=== PATIENT | male | born 1995 | race Two or more races ===

== ENCOUNTER 2017-08-11 10:23 | Emergency (ER) | payer MEDICAID ==
[~2017-08-11] VITALS: Ht 170.2 cm; Wt 79.0 kg
[~2017-08-11 10:23] MED LIST: BAC10T PO; IBUP-1984 PO; ONDA4TAB59 PO; ONDA4TAB6 PO; RANI-366 PO
[2017-08-11 11:05] LABS: BASOPHILS % (AUTO) 0.3 % (0-1); EOSINOPHILS # (AUTO) 0.1 X10'3 (0-0.9); HEMATOCRIT 40.8 % (42.0-52.0); HEMOGLOBIN 14.3 g/dl (14.0-17.9); LYMPHOCYTES # (AUTO) 1.7 X10'3 (1.1-4.8); LYMPHOCYTES % (AUTO) 26.1 % (21-51); MEAN CORPUSCULAR HEMOGLOBIN 31.5 PG (27.0-31.0); MEAN CORPUSCULAR VOLUME 90.1 FL (78-98); MEAN PLATELET VOLUME 8.3 FL (7.4-10.4); MONOCYTES # (AUTO) 0.6 X10'3 (0-0.9); MONOCYTES % (AUTO) 9.8 % (2-12); NEUTROPHILS % (AUTO) 61.8 % (42-75); PLATELET COUNT 222 X10'3 (140-440); RED BLOOD COUNT 4.53 X10'6 (4.70-6.10); RED CELL DISTRIBUTION WIDTH 12.9 % (11.5-14.5); WHITE BLOOD COUNT 6.4 X10'3 (4.5-11.0)
[2017-08-11 11:10] LABS: CLARITY,URINE CLEAR (Clear); COLOR,URINE YELLOW (Yellow); GLUCOSE, URINE NEGATIVE (Neg); KETONES,URINE NEGATIVE (Neg); LEUKOCYTE ESTERASE ,URINE NEGATIVE (Neg); NITRITES, URINE NEGATIVE (Neg); OCCULT BLOOD,URINE NEGATIVE (Neg); PH,URINE 6.5 (4.8-8.0); PROTEIN,URINE NEGATIVE (Neg); UROBILINOGEN,URINE 0.2 E.U/dL (0.2-1.0)
[2017-08-11 11:16] LABS: UA COLLECTION TYPE VOIDED
[2017-08-11 11:19] LABS: ALANINE AMINOTRANSFERASE 25 U/L (12-78); ALBUMIN/GLOBULIN RATIO 1.1 (1.1-1.5); ALKALINE PHOSPHATASE 87 IU/L (46-116); ANION GAP 10 (8-16); ASPARTATE AMINO TRANSFERASE 14 U/L (10-37); BILIRUBIN,TOTAL 0.3 MG/DL (0.1-1.0); BLOOD UREA NITROGEN 8 MG/DL (7-18); BUN/CREATININE RATIO 9.9 (5.4-32.0); CHLORIDE 103 MMOL/L (99-107); CREATININE 0.81 MG/DL (0.60-1.10); GLUCOSE 112 MG/DL (70-104); POTASSIUM 3.9 MMOL/L (3.5-5.1); SODIUM 139 MMOL/L (135-145); TOTAL CARBON DIOXIDE 26.2 MMOL/L (24-32); TOTAL PROTEIN 7.6 G/DL (6.4-8.2); eGFR > 90 ML/MIN
[2017-08-11] MEDS ORDERED: ondansetron 4mg rapidly disintigrating tab PO ONE (11:20)
[2017-08-11] MEDS ORDERED: pantoprazole 40mg Tablet.DR PO ONE (11:20)
[2017-08-11] MEDS ORDERED: sucralfate 1gm/10ml UD suspension PO ONE (11:20)
[2017-08-11 11:28] LABS: LIPASE 703 U/L (73-393)
[2017-08-11 11:29] VITALS: BP 113/75
[2017-08-11] MEDS ORDERED: ketorolac trometh. 30mg/ml inj. IM ONE (11:35)
[2017-08-11] MEDS ORDERED: ONDA4TAB6 PO (11:51)
== END 2017-08-11 11:57 | disposition home or self-care (01) ==
LOC: ER 10:23
DX: K85.90 Acute pancreatitis without necrosis or infection, unspecified (principal); R10.10 Upper abdominal pain, unspecified; F12.90 Cannabis use, unspecified, uncomplicated; Z79.899 Other long term (current) drug therapy
CPT/HCPCS: 36415; 80053; 81003; 83690; 85025; 85610; 96372; 99284; J1885

== ENCOUNTER 2017-08-20 08:35 | Emergency (ER) | payer MEDICAID ==
[~2017-08-20] VITALS: Ht 167.6 cm; Wt 73.0 kg
[2017-08-20 09:22] LABS: BASOPHILS % (AUTO) 0.3 % (0-1); EOSINOPHILS # (AUTO) 0.2 X10'3 (0-0.9); EOSINOPHILS % (AUTO) 2.3 % (0-6); HEMATOCRIT 43.6 % (42.0-52.0); HEMOGLOBIN 15.3 g/dl (14.0-17.9); LYMPHOCYTES # (AUTO) 2.3 X10'3 (1.1-4.8); LYMPHOCYTES % (AUTO) 22.7 % (21-51); MEAN CORPUSCULAR HEMOGLOBIN 31.6 PG (27.0-31.0); MEAN CORPUSCULAR HGB CONC 35.1 % (33.0-36.5); MEAN PLATELET VOLUME 8.2 FL (7.4-10.4); MONOCYTES # (AUTO) 0.5 X10'3 (0-0.9); MONOCYTES % (AUTO) 5.3 % (2-12); NEUTROPHILS # (AUTO) 7.1 X10'3 (1.8-7.7); NEUTROPHILS % (AUTO) 69.4 % (42-75); PLATELET COUNT 280 X10'3 (140-440); RED BLOOD COUNT 4.85 X10'6 (4.70-6.10); RED CELL DISTRIBUTION WIDTH 13.2 % (11.5-14.5); WHITE BLOOD COUNT 10.2 X10'3 (4.5-11.0)
[2017-08-20 09:35] LABS: ALANINE AMINOTRANSFERASE 19 U/L (12-78); ALBUMIN 4.3 G/DL (3.4-5.0); ALBUMIN/GLOBULIN RATIO 1.2 (1.1-1.5); ALKALINE PHOSPHATASE 81 IU/L (46-116); ANION GAP 11 (8-16); ASPARTATE AMINO TRANSFERASE 13 U/L (10-37); BILIRUBIN,TOTAL 0.4 MG/DL (0.1-1.0); BLOOD UREA NITROGEN 17 MG/DL (7-18); BUN/CREATININE RATIO 18.7 (5.4-32.0); CALCIUM 9.5 MG/DL (8.5-10.1); CHLORIDE 103 MMOL/L (99-107); CREATININE 0.91 MG/DL (0.60-1.10); GLUCOSE 119 MG/DL (70-104); POTASSIUM 4.1 MMOL/L (3.5-5.1); SODIUM 139 MMOL/L (135-145); TOTAL CARBON DIOXIDE 25.1 MMOL/L (24-32); eGFR > 90 ML/MIN
[2017-08-20 09:38] LABS: LIPASE 1923 U/L (73-393)
[2017-08-20 10:01] LABS: CLARITY,URINE Clear (Clear); COLOR,URINE Yellow (Yellow); GLUCOSE, URINE Negative (Neg); KETONES,URINE Negative (Neg); LEUKOCYTE ESTERASE ,URINE Negative (Neg); NITRITES, URINE Negative (Neg); OCCULT BLOOD,URINE Negative (Neg); PROTEIN,URINE Negative (Neg); UROBILINOGEN,URINE 0.2 E.U/dL (0.2-1.0)
[2017-08-20 10:05] LABS: UA COLLECTION TYPE URINAL
[2017-08-20] MEDS ORDERED: HYDR-565 PO (10:32)
[2017-08-20 11:07] VITALS: BP 142/86
== END 2017-08-20 11:09 | disposition left against medical advice (07) ==
LOC: ER 08:35
DX: K85.90 Acute pancreatitis without necrosis or infection, unspecified (principal); F12.90 Cannabis use, unspecified, uncomplicated; Z79.899 Other long term (current) drug therapy
CPT/HCPCS: 36415; 80053; 81003; 83690; 85025; 99284

== ENCOUNTER 2019-02-28 11:36 | Emergency (ER) | payer MEDICAID ==
[~2019-02-28] VITALS: Ht 177.8 cm; Wt 85.5 kg
[2019-02-28 11:51] VITALS: BP 128/60
[2019-02-28] MEDS ORDERED: HYDROcodone/acetaminophen 5mg/325mg tablet PO ONE (13:00)
[2019-02-28] MEDS ORDERED: HYDR-4384 PO (13:02)
[2019-02-28] MEDS ORDERED: SILV20CR13 TOP (13:02)
[2019-02-28] MEDS ORDERED: CEPH500C5 PO (13:02)
[2019-02-28] MEDS ORDERED: silver sulfadiazine cream 400gm jar TP ONE (13:05)
== END 2019-02-28 13:30 | disposition home or self-care (01) ==
LOC: ER 11:37
DX: T23.202A Burn of second degree of left hand, unspecified site, initial encounter (principal); F12.90 Cannabis use, unspecified, uncomplicated; Z87.19 Personal history of other diseases of the digestive system; Z79.899 Other long term (current) drug therapy; Z79.2 Long term (current) use of antibiotics; X19.XXXA Contact with other heat and hot substances, initial encounter; Y93.89 Activity, other specified; Y92.89 Other specified places as the place of occurrence of the external cause; Y99.8 Other external cause status
CPT/HCPCS: 16020; 99284

== ENCOUNTER 2023-11-29 08:06 | Emergency (ER) | payer MEDICAID ==
[~2023-11-29] VITALS: Ht 180.3 cm; Wt 101.7 kg
[~2023-11-29 08:06] MED LIST changes: -BAC10T PO; -IBUP-1984 PO; -ONDA4TAB59 PO; -ONDA4TAB6 PO; -RANI-366 PO; +SILV20CR13 TOP
[2023-11-29] MEDS: ketorolac trometh 30MG/ML vial 30 MG/ML VIAL IM ONE (08:38)
[2023-11-29] MEDS: Cipro HC otic suspension 10ML bottle RIGHT EAR SCH (08:40)
[2023-11-29 08:46] VITALS: BP 141/66; PULSE 72; RESP 16; TEMP 98.9; O2SAT 98
== END 2023-11-29 08:47 | disposition home or self-care (01) ==
LOC: ER 08:07
DX: H60.91 Unspecified otitis externa, right ear (principal); F12.90 Cannabis use, unspecified, uncomplicated; Z79.899 Other long term (current) drug therapy
CPT/HCPCS: 96372; 99283; J1885

== ENCOUNTER 2025-01-04 10:10 | Outpatient (CLI) | payer MEDICAID ==
[~2025-01-04 10:10] MED LIST changes: +iohexol 300mg/ml 100ml inj. ONE
--- NOTE | 2025-01-04 11:12 | RADIOLOGY REPORT ---
Exam: CT CT ABDOMEN PELVIS W/ IV CONTRAST History: LEFT LOWER QUADRANT PAIN Comparison Study: None Exam Date: 01/04/2025 10:39 AM Radiation Dose Information: CT Dose: CTDI volume is 25 mGy. Dose-length product is 1412 mGy*cm Contrast: Type of contrast: Omnipaque 300 Contrast injected: 100 cc TECHNIQUE: During the uneventful, intravenous administration of contrast material, multislice data acquisition was obtained through the abdomen and pelvis. The data set was subsequently reconstructed into axial images. Images were reviewed on a work station using a combination of axial and multiplanar using a variety of window levels and settings. Findings: Lower chest: Clear. Liver: Mildly decreased in attenuation diffusely Biliary system: Unremarkable Spleen: Unremarkable Pancreas: Unremarkable. Adrenals: Unremarkable. Kidneys and ureters: Normal renal enhancement. No hydronephrosis Bowel: No obstruction. Normal appendix. Scattered colonic diverticula. Bladder: Unremarkable Reproductive organs: No abnormal mass. Lymph nodes: Unremarkable. Peritoneum: Unremarkable Vessels: Patent major intra-abdominal vasculature. Bones and soft tissue: No aggressive osseous lesion IMPRESSION: No acute CT findings in the abdomen and pelvis.
== END 2025-01-04 23:59 | disposition home or self-care (01) ==
LOC: RAD 10:10
PROVIDERS: ATTEND Nurse Practitioner Family
DX: K57.30 Diverticulosis of large intestine without perforation or abscess without bleeding (principal); R10.32 Left lower quadrant pain
CPT/HCPCS: 74177; Q9967